=== PATIENT | female | born 1955 | race Caucasian/White ===

== ENCOUNTER → 2020-03-24 | Outpatient (CLI) | payer BC, OTHER | LOC: SJCVCIMAG 07:50 | PROVIDERS: ATTEND Internal Medicine | DX: I08.0 Rheumatic disorders of both mitral and aortic valves (principal); I10 Essential (primary) hypertension ==

== ENCOUNTER → 2020-07-13 | Outpatient (CLI) | payer BC, OTHER | LOC: RAD 11:56 | PROVIDERS: ATTEND Internal Medicine | DX: R06.02 Shortness of breath (principal) ==